=== PATIENT | male | born 1955 | race Caucasian/White ===

== ENCOUNTER 2025-03-08 06:20 | Day surgery (SDC) | payer MEDICARE ==
[2025-03-08 06:53] LABS: PLATELET COUNT,PLT 249.0 K/uL (130-375); RED BLOOD CELL COUNT 4.91 M/uL (4.14-5.76); WHITE BLOOD CELL COUNT,WBC 6.0 K/uL (3.2-11.0)
[2025-03-08] MEDS ORDERED: Propofol 200 MG/20 ML SDV ONE (07:10)
[2025-03-08] MEDS ORDERED: Succinylcholine 200 MG/10 ML MDV ONE (07:10)
[2025-03-08] MEDS ORDERED: fentaNYL 250 MCG/5 ML SDV ONE (07:10)
[2025-03-08] MEDS ORDERED: Ondansetron 4 MG/2 ML SDV ONE (07:10)
[2025-03-08] MEDS ORDERED: Dexamethasone 4 MG/ML SDV ONE (07:10)
[2025-03-08 07:13] LABS: A/G RATIO 0.9 (1.2-2.2); ALANINE AMINOTRANSFERASE,ALT 26 U/L (12-78); ASPARTATE AMNIOTRANSFERASE,AST 22 U/L (15-37); BILIRUBIN TOTAL 0.5 mg/dL (0.2-1.0); BLOOD UREA NITROGEN,BUN 14 mg/dL (7-18); CARBON DIOXIDE,CO2 31 mmol/L (21-32); CHLORIDE,CL 103 mmol/L (100-108); CREATININE 0.9 mg/dL (0.8-1.3); EST CRCL DRUG DOSING (CG) 63.22 mL/min; ESTIMATED GFR 93 mL/min (>60); GLUCOSE RANDOM 101 mg/dL (74-106); POTASSIUM,K 3.7 mmol/L (3.6-5.2); PROTEIN TOTAL,TP 7.0 g/dL (6.4-8.2); SODIUM,NA 140 mmol/L (140-148)
[2025-03-08] MEDS: Lactated Ringers 1,000 ML IV SCH (07:39)
[2025-03-08] MEDS ORDERED: ePHEDrine 50 MG/ML SDV ONE (08:01)
[2025-03-08] MEDS: Bupivacaine 0.25%/EPINEPHrine 1:200,000 30 ML SDV ONE (08:26)
== END 2025-03-08 13:30 | disposition home or self-care (01) ==
LOC: JP.SDS 06:20
PROVIDERS: ATTEND Surgery
DX: K40.91 Unilateral inguinal hernia, without obstruction or gangrene, recurrent (principal); Z88.5 Allergy status to narcotic agent
CPT/HCPCS: 36415; 49651; 80053; 85027; A9270; C1781; J0330; J0690; J1100; J2405; J2704; J3010; J7120; 00830-QZ; J3490